=== PATIENT | female | born 1955 | race Caucasian/White ===

== ENCOUNTER 2016-09-08 18:20 | Emergency (ER) | payer OTHER ==
[~2016-09-08] VITALS: Ht 162.6 cm; Wt 48.5 kg
[2016-09-08 18:26] VITALS: Ht 162.6 cm; Wt 48.5 kg
[2016-09-08] MEDS ORDERED: ALBUTEROL 0.083% (NEB) 2.5 MG/3 ML AMP HHN STA (19:46)
--- NOTE | 2016-09-08 19:50 | ERD ---
ER Documentation Chief Complaint Date/Time DATE: 09/08/16 TIME: 19:48 Chief Complaint Upper back pain x 5 days HPI 61-year-old female who presented emergency department for multiple complaints including cough, fever, upper back pain. Stated that the cough is on and off for more than a month. Went to an urgent care 6 weeks ago and was prescribed with Pro-air Went to urgent care again last week and prescribed with azithromycin and prednisone. Complains of upper back pain on range of motion. She also complains of right sided facial pain mostly on her right maxillary sinus area. Also complains of chest congestion. Denies headache, loss of consciousness, dizziness, blurry vision, changes in vision, photophobia, facial pain, ear pain, throat pain, difficulty swallowing, neck pain, shoulder pain, chest pain, hemoptysis, abdominal pain, back pain, loss of appetite, nausea, vomiting, hematochezia, diarrhea, constipation, urinary symptoms, , the possibility of being , bladder and bowel incontinences, extremity weakness, extremity tenderness, numbness or tingling sensation, difficulty walking, recent travel, recent exposure to illness, recent antibiotic use in the last 3 months, fever, chills. No known drug allergies. No known drug allergies. No past medical history. No surgical history. Not taking any prescription medications. Social history: Not working at this time. Denies smoking, use of alcohol, use of illegal drugs. ROS All systems reviewed and are negative except as per history of present illness. Medications Home Meds Active Scripts Amoxicillin/Potassium Clav (Amox-Clav 875-125 mg Tablet) 875-125 mg Tab, 1 TAB PO BID for 7 Days, #14 TAB Prov:EBONYSILVER Anderson 09/08/16 Allergies Allergies: Coded Allergies: No Known Drug Allergies (Verified Allergy, Unknown, 09/08/16) PMhx/Soc Medical and Surgical Hx: pt denies Medical Hx, pt denies Surgical Hx History of Surgery: No Anesthesia Reaction: No Hx Neurological Disorder: No Hx Respiratory Disorders: No Hx Cardiac Disorders: No Hx Psychiatric Problems: No Hx Miscellaneous Medical Probl: No Hx Alcohol Use: No Hx Substance Use: No Hx Tobacco Use: No Smoking Status: Never smoker Physical Exam Vitals Vital Signs Date Time Temp Pulse Resp B/P Pulse Ox O2 Delivery O2 Flow Rate FiO2 09/08/16 21:54 99.0 110 20 122/76 99 Room Air 09/08/16 20:16 58 18 98 21 09/08/16 18:26 99.0 80 20 138/67 96 Physical Exam CONSTITUTIONAL: Well-appearing; well-nourished; in no apparent distress. HEAD: Normocephalic; atraumatic. EYES: Conjunctiva clear, sclera non-icteric, EOM intact. PERRL Ears: Hearing intact. EACs clear, TMs non-bulging, non-inflamed, translucent & mobile, ossicles normal appearance, No obstructions, no erythema, no discharges Nose: No obstructions. No polyps. No external lesions. Mucosa inflamed. No external lesions, septum and turbinates normal. No rhinorrhea. No discharges. Frontal sinus is tender to palpation. Maxillary sinus is tender to palpation. MOUTH: Moist mucous membranes, no lesion, no obstructions, no vesicles, no thrush, patent airway Throat: Uvula in midline. Right tonsil is +1 with no erythema, no exudate. Left tonsil is +1 with no erythema, no exudate. Tolerating secretions well. Good gag reflex. Patent airway. Neck: Supple, without lesions, bruits, or adenopathy. No mass. Thyroid non- enlarged and non-tender to palpation. CHEST: Symmetrical chest. Respirations even and not labored. No retractions noted. CARDIOVASCULAR: Normal S1, S2. RRR. No murmurs, gallops. RESPIRATORY: Normal chest excursion with respiration. No rhonchi, or rales. Mild bilateral wheezing. Breathing even and unlabored. Speaking in clear, full , and complete sentences w/ ease. ABDOMEN: Normal bowel sounds normal. Soft, round, non-distended, non-guarding, no tenderness, no rebound, no organomegaly, no masses, no pulsating abdominal mass. No hernia. No peritoneal signs. : No CVA tenderness. BACK: Symmetrical shoulder. Spine is midline without deformity, tenderness. No evidence of trauma or deformity. PELVIS: Stable pelvis. No evidence of trauma or deformity. MUSCULOSKELETAL: Normal gait and station. No misalignment, asymmetry, crepitation, defects, tenderness, masses, effusions, decreased range of motion, instability, atrophy or abnormal strength or tone in the head, neck, spine, ribs , pelvis or extremities. No calf tenderness. NEUROVASCULAR: Distal pulses are present. Pedal pulse are present, equal, and normal. Capillary refills are < 2 seconds. NEUROLOGIC: Alert and oriented x4. Speaks full and clear sentences. Cranial Nerves II-XII normal. Sensation to pain, touch, and proprioception normal. Grossly unremarkable. No neurologic deficits. Romberg test is negative. PSYCHOLOGICAL: The patients mood and manner are appropriate. No hallucinations , delusions. Not SI. Not HI. Has the capacity to decide for self SKIN: Normal for age and ethnicity; warm; dry; good turgor; no apparent lesions or exudates. No rashes, hives, discoloration. Intact. Results 24 hrs Current Medications Medications (Trade) Dose Ordered Sig/Nayeli Route PRN Reason Start Time Stop Time Status Last Admin Dose Admin Albuterol (Proventil 0.083% (Neb)) 5 mg ONCE STAT N 09/08/16 19:46 09/08/16 19:48 DC 09/08/16 20:16 Ipratropium [place] (Atrovent 0.02% (Neb)) 0.5 mg ONCE ONCE N 09/08/16 20:00 09/08/16 20:01 DC 09/08/16 20:16 Procedures/MDM Examination: Please see physical examination Disease process, medical treatment was explained to the patient and family member. They verbalized understanding and agreed with the diagnostic tests, medical treatment, and follow-up care. EKG: Sinus bradycardia with ventricular rate of 57 bpm. No signs of acute myocardial infarction. Also read by Dr. Issa Craven. Radiology: Chest x-ray Impression: No evidence for acute cardiopulmonary disease. Treatment: Albuterol and Atrovent breathing treatment. Re-evaluation: Denies headache, dizziness, blurry vision, neck pain, shoulder pain, chest pain, difficulty breathing, nausea, vomiting. No episode of emesis here in the emergency department. Lung sounds are clear to auscultation. Respirations even and unlabored. There is no right upper/right lower/epigastric /left upper/left lower abdominal tenderness and light and deep palpation. Negative Rovsing's sign. Negative Buddy sign. Able to jump 5 times without developing abdominal pain. No neurological deficits. No neurovascular deficits. Consultation: None Differential diagnosis: Acute myocardial infarction versus acute coronary syndrome versus pneumonia versus bronchitis versus upper respiratory infection with sinusitis Medical decision makin-year-old female who presented emergency department for multiple complaints including cough, fever, upper back pain. Stated that the cough is on and off for more than a month. Went to an urgent care 6 weeks ago and was prescribed with Pro-air Went to urgent care again last week and prescribed with azithromycin and prednisone. Complains of upper back pain on range of motion. She also complains of right sided facial pain mostly on her right maxillary sinus area. Also complains of chest congestion. Patient's complaint, patient's history about her complaint, my physical findings, my diagnostic test results, my reevaluation are consistent my final diagnosis of sinusitis, bronchitis. Medication: Augmentin. Patient and family member are made aware of the side effects and adverse reactions of the medications prescribed. Instructed on when to seek emergent and medical attention in case allergic/anaphylactic reactions or severe side effects and or adverse reactions to medications. Patient and family member verbalized understanding. Patient instructed Instructed to follow-up with his PCP in 24-48 hours. Patient stated she she will make sure to see a primary care provider in the next 24 hours Instructed to Call 911 for chest pain, shortness of breath. Advised to come back here in ED as soon as possible for severity of symptoms which includes but not limited to: any new symptoms; shortness of breath/difficulty of breathing; cardiovascular changes; severe gastrointestinal symptoms; signs and symptoms of bleeding and or infection; signs of compartment syndrome/neurovascular changes; neurological changes/deficits. Patient and family member verbalized understanding. Upon discharge, patient is alert and oriented x 4, speaks full and clear sentences, denies pain, has no neurological deficits, has no neurovascular deficits, difficulty of breathing. Breathing even and unlabored. Lung sounds are clear to auscultation. Not in distress. Appears comfortable. Ambulatory with steady gait. Appears satisfied with care provided here in ED. Departure Diagnosis: Primary Impression: Sinusitis Additional Impression: Bronchitis Condition: Stable Additional Instructions: Patient instructed Instructed to follow-up with his PCP in 24-48 hours. Patient stated she she will make sure to see a primary care provider in the next 24 hours Instructed to Call 911 for chest pain, shortness of breath. Advised to come back here in ED as soon as possible for severity of symptoms which includes but not limited to: any new symptoms; shortness of breath/difficulty of breathing; cardiovascular changes; severe gastrointestinal symptoms; signs and symptoms of bleeding and or infection; signs of compartment syndrome/neurovascular changes; neurological changes/deficits. Patient and family member verbalized understanding. SILVER BECK September 08, 2016 19:50
[2016-09-08] MEDS ORDERED: IPRATROPIUM (NEB) 0.5 MG/2.5 ML AMP HHN ONE (20:00)
--- NOTE | 2016-09-08 21:15 | RADRPT ---
PROCEDURE: XR Chest. CLINICAL INDICATION: Shortness of breath TECHNIQUE: PA and Lateral views of the chest were obtained. COMPARISON: There are no similar studies submitted for comparison. FINDINGS: The heart is normal in size. The lungs are clear without evidence of infiltrate. There is no pleural effusion. No pneumothorax is identified. The osseous structures are intact. IMPRESSION: No evidence for acute cardiopulmonary disease. RPTAT: HIKT .Jesus Alegria MD, MD Date Time Electronically viewed and signed by .Jesus Alegria MD, on 09/08/2016 21:15 .T/
[2016-09-08] MEDS ORDERED: AMOX1TAB10 PO (21:45)
[2016-09-08 21:54] VITALS: BP 122/76; PULSE 110; RESP 20; TEMP 99
== END 2016-09-08 21:54 | disposition home or self-care (01) ==
LOC: FTE 18:20
DX: J32.9 Chronic sinusitis, unspecified (principal); J20.9 Acute bronchitis, unspecified; R05 Cough
CPT/HCPCS: 71020; 93005; 94664; Z7502; Z7610

== ENCOUNTER 2016-09-13 20:18 | Emergency (ER) | payer OTHER ==
[~2016-09-13] VITALS: Ht 160 cm; Wt 52.0 kg
[~2016-09-13 20:18] MED LIST: AMOX1TAB10 PO
[2016-09-13 20:21] VITALS: Ht 160 cm; Wt 52.0 kg
--- NOTE | 2016-09-13 21:49 | ERA ---
ER Documentation Chief Complaint Date/Time DATE: 09/13/16 TIME: 21:42 Chief Complaint back pain, chest congestion, bitter taste muscle cramps ringing of ear HPI This is a 61-year-old female presenting to the ED for chief complaint of cough. Patient presents with daughter. Patient also complains of diarrhea starting today. Patient describes the diarrhea as yellow but not foul-smelling. Patient also complains of nasal congestion and pressure. Patient denies abdominal pain, nausea, vomiting, stiff neck, history of asthma or smoking. Patient was worked up. The same symptoms 3 days ago with an unremarkable chest x-ray and EKG. Patient denies shortness of breath, radiation of pain, chest pain, headache. ROS All systems reviewed and are negative except as per history of present illness. Medications Home Meds Active Scripts Amoxicillin/Potassium Clav (Amox-Clav 875-125 mg Tablet) 875-125 mg Tab, 1 TAB PO BID for 7 Days, #14 TAB Prov:SILVER BECK 09/08/16 Allergies Allergies: Coded Allergies: No Known Drug Allergies (Verified Allergy, Unknown, 09/13/16) PMhx/Soc Medical and Surgical Hx: pt denies Medical Hx, pt denies Surgical Hx History of Surgery: No Anesthesia Reaction: No Hx Neurological Disorder: No Hx Respiratory Disorders: No Hx Cardiac Disorders: No Hx Psychiatric Problems: No Hx Miscellaneous Medical Probl: No Hx Alcohol Use: No Hx Substance Use: No Hx Tobacco Use: No Smoking Status: Never smoker Physical Exam Vitals Vital Signs Date Time Temp Pulse Resp B/P Pulse Ox O2 Delivery O2 Flow Rate FiO2 09/13/16 20:21 98.3 80 20 135/79 97 Physical Exam Const: [] Head: Atraumatic Eyes: Normal Conjunctiva ENT: Normal External Ears, Nose and Mouth. Neck: Full range of motion..~ No meningismus. Resp: Clear to auscultation bilaterally Cardio: Regular rate and rhythm, no murmurs Abd: Soft, non tender, non distended. Normal bowel sounds Skin: No petechiae or rashes Back: No midline or flank tenderness Ext: No cyanosis, or edema Neur: Awake and alert Psych: Normal Mood and Affect Procedures/MDM Patient is being evaluated for acute bronchitis versus sinusitis. Patient was in the ED diagnosed with acute bronchitis and prescribed Augmentin. A chest x- ray taken 3 days ago was negative. Most likely cause of patient's symptoms is viral. Patient was brought in by daughter who is worried that she may be taking too many medications. Will advise him to discontinue the antibiotic as it is causing adverse reactions with diarrhea and seek care primary care physician for workup and possible treatment of Clostridium difficile infection. At this time we cannot rule out rule and C. difficile infection. Patient is healthy-appearing is sitting up on bed and her only complaint is cough. Patient appears worrisome but denies wanting herself or others. I have reviewed the documents from her previous visit. Her condition has improved according to her regarding breathing. Patient's vitals are stable and her current condition is appropriate for discharge. Patient has been advised and strongly suggested to follow-up with PCP for chronic management of conditions which she is seeking advice for today. I will give the patient a handout on her current condition at discharge. I asked that anymore questions and they said no. Patient has verbally agreed to the assessment and plan. At this time I have very little suspicion for pneumonia, endangerment the airway , bacterial involvement, or meningitis. Departure Diagnosis: Primary Impression: Acute bronchitis Qualified Code: J20.9 - Acute bronchitis, unspecified organism Additional Impression: Bronchitis Condition: Stable Patient Instructions: Clostridium difficile Infection, Bronchitis, No Antibiotic (Adult) [facility]errals[facility] Usted se hummel hecho un examen mdico de control que le indica que no est en caridad condicin que requiera tratamiento urgente en el Departamento de Emergencia. Un estudio ms profundo y el tratamiento de ledesma condicin pueden esperar sin ningn riesgo hasta que usted sea atendida/o en el consultorio de ledesma mdico o caridad cl declan. Es responsabilidad suya arreglar caridad van para el seguimiento del arpit. MANEJO DE CONDICIONES NO URGENTES EN EL FUTURO 1) Si usted tiene un mdico de atencin primaria: Usted debera llamar a ledesma mdico de atencin primaria antes de venir al departamento de emergencia. Despus de las horas de consultorio, ledesma doctor o ledesma asociado/a est disponible por telfono. El mdico o enfermero de beatriz en el servicio telefnico puede asesorarle por tha medio para atender el problema, o arpit contrario se puede programar caridad van. 2) Si usted no tiene un mdico de atencin primaria: Llame al mdico o clnica de referencia que aparece abajo grzegorz las horas de consultorio para hacer caridad van para que le vean. CLINICAS: [place] [id number] [phone] [place] [phone] [place] [phone] [facility]. [place] [id number] [phone] [place] [address] [phone] [facility] [phone] [address] [facility]. [facility] YOU HAVE RECEIVED A MEDICAL SCREENING EXAM AND THE RESULTS INDICATE THAT YOU DO NOT HAVE A CONDITION THAT REQUIRES URGENT TREATMENT IN THE EMERGENCY DEPARTMENT. FURTHER EVALUATION AND TREATMENT OF YOUR CONDITION CAN WAIT UNTIL YOU ARE SEEN IN YOUR DOCTORS OFFICE WITHIN THE NEXT 1-2 DAYS. IT IS YOUR RESPONSIBILITY TO MAKE AN APPOINTMENT FOR FOLOW-UP CARE. IF YOU HAVE A PRIMARY DOCTOR --you should call your primary doctor and schedule an appointment IF YOU DO NOT HAVE A PRIMARY DOCTOR YOU CAN CALL OUR PHYSICIAN REFERRAL HOTLINE AT IF YOU CAN NOT AFFORD TO SEE A PHYSICIAN YOU CAN CHOSE FROM THE FOLLOWING [facility] [phone]) [phone] [facility] [phone] [facility] [phone] [facility] [facility]. [facility] [address] [facility] [phone] [facility]. [facility] [address] Additional Instructions: Discontinue Augmentin due to most likely viral etiology of illness. You may continue any conservative measurements that have been outlined in the patient instructions. Follow up with your PCP within the next 1-3 days for a more thorough evaluation and possible treatment for C. difficile. Return the the emergency department immediately if symptoms worsen or change. If you have any questions regarding medications, ask your pharmacist or us before you leave. If any adverse reactions occur while taking your medications, discontinue the treatment and return to the emergency department immediately. Take your medications as directed, and complete the entire course of treatment. IRLANDA JUAREZ PA-C September 13, 2016 21:49
== END 2016-09-13 22:03 | disposition home or self-care (01) ==
LOC: FTE 20:18
DX: J20.9 Acute bronchitis, unspecified (principal)
CPT/HCPCS: 99282